=== PATIENT | female | born 1985 | race Caucasian/White ===

== ENCOUNTER → 2021-04-23 | Outpatient (CLI) | payer OTHER ==
--- NOTE | 2021-04-25 11:54 | MM ---
Reason for exam: screening (asymptomatic). Baseline mammogram. History: Patient is postmenopausal. Retro-pectoral implants in both breasts, 2018. Physical Findings: Nurse did not find any significant physical abnormalities on exam. MG Screening Mammo Implant/CAD Bilateral CC, MLO, and ID view(s) were taken. There are scattered fibroglandular densities. There is no discrete abnormality. Bilateral retropectoral silicone implants. ASSESSMENT: Negative, BI-RAD 1 RECOMMENDATION: Routine screening mammogram of both breasts in 1 year.
== END | disposition home or self-care (01) ==
LOC: RADMAMWWP 14:25
PROVIDERS: ATTEND Family Medicine
DX: Z12.31 Encounter for screening mammogram for malignant neoplasm of breast (principal); Z78.0 Asymptomatic menopausal state
CPT/HCPCS: 77067

== ENCOUNTER → 2022-08-18 | Outpatient (CLI) | payer OTHER ==
--- NOTE | 2022-08-19 19:28 | MM ---
Reason for Exam: Screening (asymptomatic). Last mammogram was performed 1 year(s) and 4 month(s) ago. Patient History: Menarche at age 10. First Full-Term at age 21. Hysterectomy at age 33. Patient has history of breast feeding. 2018, Bilateral Implants. Maternal cousin (rebeca) had ovarian cancer, age 34. Maternal aunt (key) had ovarian cancer, age 44. Paternal grandmother (lorenza) had ovarian cancer, age 38. Last menstrual period: 09/15/2019 Risk Values: Micaela 5 year model risk: 0.4%. NCI Lifetime model risk: 9.1%. Prior Study Comparison: 04/23/2021 Bilateral Screening Mammogram, [facility]. Tissue Density: The breast tissue is heterogeneously dense. This may lower the sensitivity of mammography. Findings: Analyzed By CAD. Retropectoral silicone glands on both sides. Focal asymmetry 12:00 left breast appears more defined. This may represent superimposition shadow but further evaluation is recommended. Otherwise, no significant change. Overall Assessment: Incomplete: need additional imaging evaluation, BI-RAD 0 Management: Special View Mammogram of the left breast. Including Spot 3-D CC, 3-D CC rolled, spot 3-D MLO, and 3-D lateral views. Targeted left breast ultrasound if any persisting abnormality. [facility] will attempt to contact patient to return for supplemental views and ultrasound if indicated. Electronically signed and approved by: Gray Stanford M.D. Radiologist
--- NOTE | 2022-08-19 19:28 | MM ---
Reason for Exam: Screening (asymptomatic). Last mammogram was performed 1 year(s) and 4 month(s) ago. Patient History: Menarche at age 10. First Full-Term at age 21. Hysterectomy at age 33. Patient has history of breast feeding. 2018, Bilateral Implants. Maternal cousin (rebeca) had ovarian cancer, age 34. Maternal aunt (key) had ovarian cancer, age 44. Paternal grandmother (lorenza) had ovarian cancer, age 38. Last menstrual period: 09/15/2019 Risk Values: Micaela 5 year model risk: 0.4%. NCI Lifetime model risk: 9.1%. Prior Study Comparison: 04/23/2021 Bilateral Screening Mammogram, [facility]. Tissue Density: The breast tissue is heterogeneously dense. This may lower the sensitivity of mammography. Findings: Analyzed By CAD. Retropectoral silicone glands on both sides. Focal asymmetry 12:00 left breast appears more defined. This may represent superimposition shadow but further evaluation is recommended. Otherwise, no significant change. Overall Assessment: Incomplete: need additional imaging evaluation, BI-RAD 0 Management: Special View Mammogram of the left breast. Including Spot 3-D CC, 3-D CC rolled, spot 3-D MLO, and 3-D lateral views. Targeted left breast ultrasound if any persisting abnormality. [facility] will attempt to contact patient to return for supplemental views and ultrasound if indicated. Electronically signed and approved by: Gray Stanford M.D. Radiologist
== END | disposition home or self-care (01) ==
LOC: RADMAMWWP 16:17
PROVIDERS: ATTEND Family Medicine
DX: Z12.31 Encounter for screening mammogram for malignant neoplasm of breast (principal); Z80.41 Family history of malignant neoplasm of ovary
CPT/HCPCS: 77067

== ENCOUNTER → 2022-08-21 | Outpatient (CLI) | payer OTHER ==
--- NOTE | 2022-08-21 10:14 | MM ---
Reason for Exam: Additional evaluation requested from abnormal screening. Last screening mammogram was performed less than 1 month ago. Patient History: Menarche at age 10. First Full-Term at age 21. Hysterectomy at age 33. Patient has history of breast feeding. 2018, Bilateral Implants. Maternal cousin (rebeca) had ovarian cancer, age 34. Maternal aunt (key) had ovarian cancer, age 44. Paternal grandmother (lorenza) had ovarian cancer, age 38. Risk Values: Micaela 5 year model risk: 0.4%. NCI Lifetime model risk: 9.1%. Prior Study Comparison: 04/23/2021 Bilateral Screening Mammogram, [facility]. 08/18/2022 Bilateral MG screening mammo implant/CAD, [facility]. Tissue Density: Left: The breast tissue is heterogeneously dense. This may lower the sensitivity of mammography. Findings: Analyzed By CAD. Area of concern within the left breast retroareolar region anteriorly compresses out on spot compression.No suspicious masses, calcifications and/or distortions. Overall Assessment: Benign, BI-RAD 2 Management: Screening Mammogram of both breasts in 1 year. A clinical breast exam by your physician is recommended on an annual basis and results should be correlated with mammographic findings. This exam should not preclude additional follow-up of suspicious palpable abnormalities. Results were given to the patient verbally at the time of exam. Electronically signed and approved by: Samuel Madrid DO
== END | disposition home or self-care (01) ==
LOC: RADMAMWWP 08:50
PROVIDERS: ATTEND Family Medicine
DX: R92.8 Other abnormal and inconclusive findings on diagnostic imaging of breast (principal); Z78.0 Asymptomatic menopausal state; Z80.3 Family history of malignant neoplasm of breast
CPT/HCPCS: 77066

== ENCOUNTER → 2023-08-23 | Outpatient (CLI) | payer OTHER ==
--- NOTE | 2023-08-24 11:58 | MM ---
Reason for Exam: Screening (asymptomatic). Last screening mammogram was performed 12 month(s) ago. Indicated Problems: Pain of the right side (Global) for 2 Month(s). Patient History: Menarche at age 10. First Full-Term at age 21. Hysterectomy at age 33. Patient has history of breast feeding. Patient used Hormonal Contraceptives for 2 years. 2018, Bilateral Implants. Maternal cousin (rebeca) had ovarian cancer, age 34. Maternal aunt (key) had ovarian cancer, age 44. Paternal grandmother (lorenza) had ovarian cancer, age 38. Paternal aunt had breast cancer. Paternal aunt had breast cancer. Risk Values: Micaela 5 year model risk: 0.5%. NCI Lifetime model risk: 9.1%. Prior Study Comparison: 04/23/2021 Bilateral Screening Mammogram, [facility]. 08/18/2022 Bilateral MG screening mammo implant/CAD, [facility]. 08/21/2022 Left MG work up lida w/imp w/CAD L, [facility]. Tissue Density: The breast tissue is heterogeneously dense. This may lower the sensitivity of mammography. Findings: Analyzed By CAD. There is asymmetric density upper right breast 6.6 cm from the nipple. Additional views are recommended. No suspicious calcifications within either breast. Bilateral implants are intact. Overall Assessment: Incomplete: need additional imaging evaluation, BI-RAD 0 Management: Diagnostic Mammogram of the right breast. . Patient should continue monthly self-breast exams. A clinical breast exam by your physician is recommended on an annual basis. This exam should not preclude additional follow-up of suspicious palpable abnormalities. Note on Micaela scores and lifetime risk: 1. A Miceala score greater than 3% is considered moderate risk. If this is the case, consider specialist referral to assess eligibility for a risk reducing agent. 2. If overall lifetime risk for the development of breast cancer is 20% or higher, the patient may qualify for future screening with alternating mammogram and breast MRI. Electronically signed and approved by: Ash Rangel M.D. Radiologis
== END | disposition home or self-care (01) ==
LOC: RADMAMWWP 14:57
PROVIDERS: ATTEND Family Medicine
DX: Z12.31 Encounter for screening mammogram for malignant neoplasm of breast (principal); Z80.3 Family history of malignant neoplasm of breast
CPT/HCPCS: 77067

== ENCOUNTER → 2023-08-26 | Outpatient (CLI) | payer OTHER ==
--- NOTE | 2023-08-26 15:12 | MM ---
Reason for Exam: Additional evaluation requested from abnormal screening. Last screening mammogram was performed less than 1 month ago. Patient History: Menarche at age 10. First Full-Term at age 21. Hysterectomy at age 33. Patient has history of breast feeding. Patient used Hormonal Contraceptives for 2 years. 2018, Bilateral Implants. Maternal cousin (rebeca) had ovarian cancer, age 34. Maternal aunt (key) had ovarian cancer, age 44. Paternal grandmother (lorenza) had ovarian cancer, age 38. Paternal aunt had breast cancer. Paternal aunt had breast cancer. Risk Values: Micaela 5 year model risk: 0.5%. NCI Lifetime model risk: 9.1%. Prior Study Comparison: 04/23/2021 Bilateral Screening Mammogram, [facility]. 08/18/2022 Bilateral MG screening mammo implant/CAD, [facility]. 08/21/2022 Left MG work up lida w/imp w/CAD L, [facility]. 08/23/2023 Bilateral MG screening mammo implant/CAD, [facility]. Tissue Density: Right: The breast tissue is heterogeneously dense. This may lower the sensitivity of mammography. Findings: Analyzed By CAD. Bilateral breast implants. Area of concern/asymmetry compresses out on spot compression imaging. No suspicious masses, calcifications or distortions. Overall Assessment: Benign, BI-RAD 2 Management: Screening Mammogram of both breasts in 1 year. Results were given to the patient verbally at the time of exam. Patient should continue monthly self-breast exams. A clinical breast exam by your physician is recommended on an annual basis. This exam should not preclude additional follow-up of suspicious palpable abnormalities. Note on Micaela scores and lifetime risk: 1. A Micaela score greater than 3% is considered moderate risk. If this is the case, consider specialist referral to assess eligibility for a risk reducing agent. 2. If overall lifetime risk for the development of breast cancer is 20% or higher, the patient may qualify for future screening with alternating mammogram and breast MRI. Electronically signed and approved by: Samuel Madrid DO
== END | disposition home or self-care (01) ==
LOC: RADMAMWWP 13:41
PROVIDERS: ATTEND Family Medicine
DX: R92.331 Mammographic heterogeneous density, right breast (principal); Z80.3 Family history of malignant neoplasm of breast
CPT/HCPCS: 77061; 77065

== ENCOUNTER → 2024-08-16 | Outpatient (CLI) | payer OTHER ==
--- NOTE | 2024-08-16 11:22 | CT ---
EXAMINATION TYPE: CT abdomen pelvis w con CT DLP: 942.70 mGycm, Automated exposure control for dose reduction was used. DATE OF EXAM: 08/16/2024 10:07 AM COMPARISON: None CLINICAL INDICATION:Female, 38 years old with history of R10.31 ABD PAIN; RLQ pain, palpable inguinal mass. TECHNIQUE: Standard CT of the abdomen and pelvis following the administration of 100 cc of Isovue 3 00 IV contrast material and oral contrast. Coronal and sagittal reformats were performed. FINDINGS: LOWER CHEST: Visualized lung bases are clear. Partial visualization of bilateral breast prosthesis. ABDOMEN LIVER: Unremarkable GALLBLADDER AND BILE DUCTS: Unremarkable. PANCREAS: Unremarkable. SPLEEN: Unremarkable. ADRENAL GLANDS: Unremarkable. KIDNEYS AND URETERS: No evidence of hydronephrosis or renal calculus. The kidneys enhance symmetrical ly. Contrast is demonstrated within both collecting systems on the delayed phase. PELVIS BLADDER: Unremarkable REPRODUCTIVE: Uterus appears surgically absent. Left ovarian cystic lesion measuring 5.7 cm. ABDOMEN & PELVIS STOMACH AND BOWEL: Small hiatal hernia, duodenum is unremarkable. No focal bowel wall thickening or s urrounding inflammatory changes. No evidence of bowel obstruction. PERITONEUM: No evidence of pneumoperitoneum or free fluid. VASCULATURE: No evidence of aortic aneurysm. MUSCULOSKELETAL: No acute osseous abnormalities. Incidental limbus vertebrae involving the L4 vertebr al body. No aggressive osseous lesion. LYMPH NODES: Enlarged right inguinal lymph nodes measuring up to 1.4 cm short axis (series 3, image 8 2). Mildly prominent right external iliac chain lymph nodes measuring less than 1 cm short axis. SOFT TISSUE/ABDOMINAL WALL: Thickened tissue within the umbilicus measuring 2.8 x 1.4 cm (series 3, i mage 50). IMPRESSION: 1. Left ovarian 5.7 cm cystic lesion. Further evaluation with pelvic ultrasound is recommended. 2. Nonspecific enlarged right inguinal lymph nodes. May be reactive. Metastasis from unknown primary is not excluded. Consider further evaluation ultrasound with possible tissue sampling. 3. Abnormal soft tissue thickening with the umbilicus. Consider further evaluation with ultrasound. [facility], , 08/16/2024 11:20 AM
== END | disposition home or self-care (01) ==
LOC: RADCTMAIN 07:46
PROVIDERS: ATTEND Family Medicine
CPT/HCPCS: 74177

== ENCOUNTER → 2024-08-28 | Outpatient (CLI) | payer OTHER ==
--- NOTE | 2024-08-29 10:21 | MM ---
Reason for Exam: Hx of breast augmentation, asymptomatic. Last screening mammogram was performed 12 month(s) ago. Patient History: Menarche at age 10. First Full-Term at age 21. Hysterectomy at age 33. Patient has history of breast feeding. Patient used Hormonal Contraceptives for 2 years. 2018, Bilateral Implants. Maternal cousin (rebeca) had ovarian cancer, age 34. Maternal aunt (key) had ovarian cancer, age 44. Paternal grandmother (lorenza) had ovarian cancer, age 38. Paternal aunt had breast cancer. Paternal aunt had breast cancer. Risk Values: Micaela 5 year model risk: 0.5%. NCI Lifetime model risk: 9.0%. Prior Study Comparison: 08/21/2022 Left MG work up lida w/imp w/CAD L, [facility]. 08/23/2023 Bilateral MG screening mammo implant/CAD, [facility]. 08/26/2023 Right MG 3D work up w/cad w/imp RT, [facility]. Tissue Density: The breasts are heterogeneously dense, which may obscure small masses. Findings: Analyzed By CAD. Bilateral retropectoral silicone implants. Centrally located asymmetric density left cc view remains unchanged from the 2021 exam. Possibly early subareolar asymmetric density on the right does not persist on the implant view. Findings compatible with superimposition shadow. There is no suspicious group of microcalcifications or new suspicious mass in either breast. Overall Assessment: Benign, BI-RAD 2 Management: Screening Mammogram of both breasts in 1 year. . Patient should continue monthly self-breast exams. A clinical breast exam by your physician is recommended on an annual basis. This exam should not preclude additional follow-up of suspicious palpable abnormalities. Note on Micaela scores and lifetime risk: 1. A Micaela score greater than 3% is considered moderate risk. If this is the case, consider specialist referral to assess eligibility for a risk reducing agent. 2. If overall lifetime risk for the development of breast cancer is 20% or higher, the patient may qualify for future screening with alternating mammogram and breast MRI. [facility], , 08/29/2024 10:18 AM. Electronically signed and approved by: Gray Stanford M.D. Radiologist
== END | disposition home or self-care (01) ==
LOC: RADMAMWWP 09:20
PROVIDERS: ATTEND Family Medicine
CPT/HCPCS: 77067

== ENCOUNTER → 2024-09-04 | Outpatient (CLI) | payer OTHER ==
--- NOTE | 2024-09-04 16:34 | US ---
EXAMINATION TYPE: US transvaginal DATE OF EXAM: 09/04/2024 COMPARISON: CT: 08/16/24 CLINICAL INDICATION: Female, 38 years old with history of N85.8 OVARIAN CYST; partial hysterectomy 5 years ago. Ovarian cyst on lt ovary on CT TECHNIQUE: Transvaginal (TV). Doppler imaging: Not performed. FINDINGS: Date of LMP: over 5 years ago EXAM MEASUREMENTS: Uterus: Surgically absent Right Ovary: 3.7 x 3.1 x 2.3 cm Left Ovary: 4.2 x 3.6 x 3.5 cm 1. Uterus: Surgically absent 3. Right Ovary: wnl 4. Left Ovary: Hyperechoic area seen measuring 2.5 x 2.6 x 2.5cm. The cystic area on CT was not seen today 5. Bilateral Adnexa: wnl 6. Posterior cul-de-sac: wnl IMPRESSION: 1. Left ovarian cyst seen on CT abdomen and pelvis 06/10/1624 not visualized on the current study. 2. 2.6 cm hyperechoic area within the left ovary. Follow-up pelvic ultrasound is recommended in 3-4 w [facility], , 09/04/2024 4:32 PM
== END | disposition home or self-care (01) ==
LOC: RADUSWWP 15:46
PROVIDERS: ATTEND Internal Medicine Hematology & Oncology
DX: N85.8 Other specified noninflammatory disorders of uterus (principal); N83.209 Unspecified ovarian cyst, unspecified side
CPT/HCPCS: 76830

== ENCOUNTER → 2024-10-03 | Outpatient (CLI) | payer OTHER ==
--- NOTE | 2024-10-03 10:21 | US ---
EXAMINATION TYPE: US transvaginal DATE OF EXAM: 10/03/2024 COMPARISON: Transvaginal ultrasound 09/04/2024, CT abdomen pelvis 08/16/2024 CLINICAL INDICATION: Female, 38 years old with history of R59.0 ENLARGED LYMPH NODES; Partial hystere ctomy x 5 years ago polycystic ovaries. Follow up to ct scan. TECHNIQUE: Transvaginal (TV). Doppler imaging: Not performed. FINDINGS: EXAM MEASUREMENTS: Uterus: Surgically absent Endometrial Stripe: Surgically absent Right Ovary: 3.6 x 2.7 x 1.9 cm Left Ovary: 4.9 x 5.3 x 4.7 cm 1. Uterus: Surgically absent 2. Endometrium: Surgically absent 3. Right Ovary: Follicles seen. 4. Left Ovary: Septated cystic area seen measuring 4.4 x 3.2 x 4.3 cm. 5. Bilateral Adnexa: wnl 6. Posterior cul-de-sac: wnl The uterus and endometrium are surgically absent. No free fluid. Unremarkable appearance of the right ovary with follicles demonstrated. Left ovarian cystic lesion with linear internal echoes measuring up to 4.4 cm. Previously seen left ovarian hyperechoic areas no longer visualized. IMPRESSION: 1. Left ovarian 4.4 cm cystic lesion with linear internal echoes favored to represent a hemorrhagic c yst. Consider follow-up ultrasound in 6-12 weeks to assess for resolution. 2. Postsurgical changes from hysterectomy. [facility], , 10/03/2024 10:19 AM
--- NOTE | 2024-10-03 10:23 | US ---
EXAMINATION TYPE: US groin RT DATE OF EXAM: 10/03/2024 COMPARISON: CT abdomen and pelvis 08/16/2024 CLINICAL INDICATION: Female, 38 years old with history of R59.0 ENLARGED LYMPH NODES; Lump in groin a fadi. TECHNIQUE: Multiple grayscale and color ultrasound images of the right groin were obtained. FINDINGS: Two hypoechoic areas seen measuring 1.2 x 6 x .8 cm and 2.0 x 1.2 x 1.2 cm. Cortical measu rements 3mm. These are most consistent with borderline prominent lymph nodes and are relatively stabl e in size from prior CT. Normal central fatty hilum is preserved suggesting a benign process. May be reactive. [facility], , 10/03/2024 10:21 AM
--- NOTE | 2024-10-03 10:26 | US ---
EXAMINATION TYPE: US abdomen limited DATE OF EXAM: 10/03/2024 COMPARISON: CT abdomen and pelvis 08/16/2024 CLINICAL INDICATION: Female, 38 years old with history of R59.0 ENLARGED LYMPH NODES; Pain lump umbil icus area. TECHNIQUE: Multiple grayscale ultrasound images of the umbilical region were obtained. Additional im aging was obtained with valsalva. FINDINGS/IMPRESSION: Scanned area of concern with no abnormalities seen. No fluid collections or ev idence of hernia. No ultrasound evidence for mass. [facility], , 10/03/2024 10:23 AM
== END | disposition home or self-care (01) ==
LOC: RADUSWWP 09:21
PROVIDERS: ATTEND Internal Medicine Hematology & Oncology
DX: N83.292 Other ovarian cyst, left side (principal); R22.9 Localized swelling, mass and lump, unspecified
CPT/HCPCS: 76705; 76830

== ENCOUNTER → 2025-01-01 | Outpatient (CLI) | payer OTHER ==
--- NOTE | 2025-01-01 13:22 | US ---
EXAMINATION TYPE: US groin RT DATE OF EXAM: 01/01/2025 COMPARISON: NONE CLINICAL INDICATION: Female, 39 years old with history of R59.0 LOCALIZED ENLARGED LYMPH NODES; F/U r ight groin lymphadenopathy TECHNIQUE: several grayscale and color doppler images obtained at area of palpable FINDINGS: palpable corresponds to a 1.8x1.3x1.2cm lymphnode appears stable from prior. several small er lymphnodes noted in area IMPRESSION: Stable right inguinal lymph node. [facility], , 01/01/2025 1:20 PM
--- NOTE | 2025-01-01 13:22 | US ---
EXAMINATION TYPE: US transvaginal DATE OF EXAM: 01/01/2025 COMPARISON: 10/03/24 US CLINICAL INDICATION: Female, 39 years old with history of N83.292 OTHER OVARIAN CYST, LT SIDE; left s hector pain, Hx Hysterectomy TECHNIQUE: Transvaginal (TV). Transabdominal grayscale sonographic images of the pelvis were acquired. Doppler imaging: Not performed. FINDINGS: Date of LMP: hysterectomy EXAM MEASUREMENTS: Uterus: Surgically absent Endometrial Stripe: Surgically absent Right Ovary: 3.5x3.6x2.3 cm Left Ovary: 3.7x3.5x2.8 cm 1. Uterus: Surgically absent 2. Endometrium: Surgically absent 3. Right Ovary: wnl 4. Left Ovary: cyst measures 2.5x1.7x2.0cm, appears to be involuting from prior 5. Bilateral Adnexa: wnl 6. Posterior cul-de-sac: wnl IMPRESSION: Involuting follicle left ovary [facility], , 01/01/2025 1:19 PM
== END | disposition home or self-care (01) ==
LOC: RADUSWWP 12:27
PROVIDERS: ATTEND Internal Medicine Hematology & Oncology
DX: N83.292 Other ovarian cyst, left side (principal); R59.0 Localized enlarged lymph nodes
CPT/HCPCS: 76830